=== PATIENT | male | born 1995 | race Caucasian/White ===

== ENCOUNTER 2022-03-25 21:28 | Emergency (ER) | payer BC ==
[~2022-03-25] VITALS: Ht 180.3 cm; Wt 81.6 kg
--- NOTE | 2022-03-25 23:10 | NUR ---
Dr. Dwyer at bedside. [facility] in [facility].
--- NOTE | 2022-03-25 23:34 | NUR ---
X-ray at bedside.
[2022-03-26 00:50] VITALS: BP 127/77
--- NOTE | 2022-03-26 00:50 | NUR ---
Patient discharged to home in stable condition. Written and verbal after care instructions given. Patient verbalizes understanding of instructions. Stressed follow up or return to ER for worsening s/s.
== END 2022-03-26 00:51 | disposition home or self-care (01) ==
LOC: ER 21:28
DX: S61.216A Laceration without foreign body of right little finger without damage to nail, initial encounter (principal); W25.XXXA Contact with sharp glass, initial encounter; Y92.89 Other specified places as the place of occurrence of the external cause
CPT/HCPCS: 73140; A4663